=== PATIENT | female | born 1945 | race Caucasian/White ===

== ENCOUNTER 2020-05-07 18:24 | Observation (INO) | payer MEDICARE ==
--- NOTE | 2020-05-07 18:50 | PDOC.FPRHP ---
- History of Present Illness Chief Complaint: Palpatations, chest discomfort History of Present Illness: Patient reports rapid heart rate and feeling very anxious. She was feeling "very rotten" and dizzy. She has been feeling dizzy off and on for a few weeks. Denies falls. The dizziness is present when she stands up, but she sometimes becomes dizzy while sitting. She attributes the dizziness while sitting to anxiety. She took medicine for dizziness but continued to feel dizzy. She reports that she has had anxiety for months. She reports daily anxiety attacks with rapid heart rate and dizziness. She denies diaphoresis. She also took her anxiety medicine without relief. She denies chest pain. She reports that she was told she was hyperventilating in the ED in [place], but did not notice until it was pointed out to her. Denies fever, abdominal pain, N/V. 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 denies: eye pain ENT: denies: nasal congestion, rhinorrhea Respiratory: denies: cough, shortness of breath Cardiovascular: reports: palpitation, edema. denies: chest pain Gastrointestinal: denies: nausea, vomiting, abdominal pain Genitourinary: denies: incontinence, dysuria Skin: denies: rashes, jaundice Musculoskeletal: reports: tenderness, swelling Neurological: denies: syncope, weakness Psychological: reports: anxiety. denies: depression - Vital signs BP: 108/79 HR: 80 RR: 18 Tmax: 99.0 Pox: 95% on RA Wt: [] FMR H&P: Upper Level - Plan Date/Time: 05/07/20 1850 I, [], have evaluated this patient and agree with findings/plan as outlined by editorial intern resident. Pertinent changes/additions are listed here.
[2020-05-07 22:55] VITALS: BMI 34.9
[2020-05-07 23:13] LABS: Troponin I 0.326 ng/mL (< 0.028)
[2020-05-08] MEDS ORDERED: Meclizine HCl 25 MG TAB PO PRN (00:46)
[2020-05-08 01:56] LABS: Troponin I 0.352 ng/mL (< 0.028)
--- NOTE | 2020-05-08 02:38 | HP ---
REASON FOR ADMISSION: Dizziness and anxiety. HISTORY OF PRESENT ILLNESS: This is a 75-year-old female patient, who has been experiencing dizziness for the past couple of months. She described it as spinning-like sensation, worse with movement. She has to hold on to something. Otherwise, she would fall, but the dizziness resolves when she is staying still in bed. She is somewhat of a poor historian, not able to characterize her symptoms in details, but today she was not feeling well. She reported anxiety, dizziness, rapid heart rate, and shortness of breath and for that reason, she went to the ER in [place]. She was found to be tachycardic, so she was given a dose of IV Lopressor. Her blood work did show increased troponin, so she was given a dose of Lovenox. The patient denied having any chest pain. Currently, she is on our telemetry floor, appears to be doing well, very comfortable. Denies being dizzy. Denies anxiety. Denies chest pain. PAST MEDICAL HISTORY: 1. DVT, was on Coumadin. 2. High blood pressure. 3. Obesity. 4. High cholesterol. 5. Anxiety. FAMILY HISTORY: Negative for premature coronary artery disease. ALLERGIES: NO NOTE OF ANY DRUG ALLERGIES. REVIEW OF SYSTEMS: All systems reviewed except for the above mentioned, and found to be negative. PHYSICAL EXAMINATION: GENERAL: Awake, alert, oriented, does not appear in distress. VITAL SIGNS: Her blood pressure is 126/65, heart rate of 73, temperature is 98.1, and saturating 96% on room air. HEENT: Head is nontraumatic, normocephalic. Pupils equal, reactive. Extraocular movements are intact. Nonicteric sclerae. Well-injected conjunctivae. Oral mucosa normal. Nasal mucosa normal. NECK: Supple. No adenopathy. No murmur. Thyroid is not palpable. Trachea is midline. No supraclavicular lymphadenopathy. HEART: S1, S2 regular. No murmur. No gallops. No friction rubs. No displacement of PMI. LUNGS: Clear to auscultation bilaterally. No wheezes, rhonchi, or crackles. ABDOMEN: Bowel sounds are positive. Nontender abdomen. No hepatosplenomegaly. EXTREMITIES: She does have 2+ pitting edema in bilateral lower extremities, which is chronic as per her, but recently not responding to the Lasix that she usually takes. NEURO: Cranial nerves 2-12 within normal limits. Normal motor function. Normal sensory function. Normal reflexes. She does have horizontal nystagmus. LABORATORY DATA: Blood work shows WBC of 9.1, hemoglobin of 14.9, platelets of 216. D-dimer 7.29. Sodium 143, potassium of 4, bicarb of 27, creatinine 0.89. Troponin initially 0.128, repeat 0.234, repeat 0.326. DIAGNOSTIC DATA: EKG shows normal sinus rhythm, low voltage. ASSESSMENT AND PLAN: This is a 75-year-old female patient who presented with feeling anxious, shortness of breath and worsening of her dizziness. She was found to be tachycardic. She was given Lopressor. She felt better, but her blood work did reveal positive D-dimer and positive troponin. She was given a dose of Lovenox, sent to us for further workup. Currently, she appears to be very comfortable. She does report chronic dizziness that has not been resolving, but also some tinnitus. 1. Cardiac. The patient will be on telemetry. We will consult Cardiology. We will do an echocardiogram and we will maintain her on her blood pressure medications and her statins. We will keep her n.p.o. for possible cardiac cath, but also we will keep her on Lovenox twice a day. Her D-dimer were positive, but she is not short of breath, so the suspicion for a PE was low but on the other hand, she does have swelling of her bilateral lower extremities. She has a history of DVT. I would like to do Doppler of lower extremity to further investigate that. I will also start her on aspirin. 2. Neurology: The patient does have chronic dizziness. I would like to do an MRI of the brain to rule out any central etiology, but we will schedule it in 24 hours after she has been seen by Cardiology and a plan was made in regards of her diagnosis of non-ST elevation MO. 3. For her history of anxiety, we will continue with her paroxetine. I did discuss with her the code status and she wishes to be a full code. Job ID: [id number]
[2020-05-08 04:44] LABS: SARS-CoV-2 MS2 Positive; SARS-CoV-2 N Gene Negative; SARS-CoV-2 S Gene Negative; SARS-CoV-2 by NAA Not Detected (NotDetected); SARS-CoV-2 orf1ab Negative
[2020-05-08] MEDS ORDERED: Enoxaparin Sodium 100 MG/ML SYRINGE SC SCH ×3 (06:00→21:00)
[2020-05-08] MEDS ORDERED: Atorvastatin Calcium 20 MG TAB PO SCH (09:00)
[2020-05-08] MEDS ORDERED: PARoxetine 20 MG TAB PO SCH (09:00)
[2020-05-08] MEDS ORDERED: Furosemide 20 MG TAB PO SCH (09:00)
[2020-05-08] MEDS ORDERED: Losartan 25 MG TAB PO SCH (09:00)
[2020-05-08] MEDS ORDERED: Aspirin 81 mg Enteric Coated Tablet PO SCH (09:00)
[2020-05-08] MEDS ORDERED: Calcium Carbonate 500 MG TAB PO SCH (09:00)
[2020-05-08] MEDS ORDERED: Cholecalciferol 1,000 UNITS (25 MCG) TAB PO SCH (09:00)
--- NOTE | 2020-05-08 10:48 | ULT ---
BILATERAL LOWER EXTREMITY VENOUS DUPLEX EXAM: HISTORY: Bilateral leg pain and swelling. FINDINGS: Real-time color Doppler evaluation of the right and left lower extremities was performed from groin t o calf. This includes evaluation of the common femoral, superficial femoral, and profunda femoral, s aphenous, popliteal, and posterior tibial veins. On the right side there is evidence of deep vein thrombus within the left common femoral vein. On th e right side, there is deep vein thrombus in the superficial femoral vein from mid thigh to include t he popliteal vein. IMPRESSION: Bilateral lower extremity deep vein thrombosis. Changes in the left common femoral vein are nonocclu sive thrombus. More extensive thrombus on the right side, particularly at the level of the common fe moral vein. POS: LALY
[2020-05-08 11:00] LABS: CKMB 2.3 ng/mL (0-6.6)
[2020-05-08] MEDS ORDERED: Iopamidol-370 76% 500 ML 1 ML ONE (12:09)
--- NOTE | 2020-05-08 12:28 | CON ---
DATE OF CONSULTATION: REASON FOR CONSULTATION: Elevated troponin. PRIMARY FERRULER: None. HISTORY OF PRESENT ILLNESS: Ms. Villaseñor is a 75-year-old woman, who states over the last month she has had increased heart rate. She has increased heart rate noted 20 to 30 minutes per day, several episodes per day. She also described heaviness in her chest in addition to shortness of breath. She decided to proceed after having associated dizziness. She does have a previous history of DVT. It appears, based on her history, there was no provoking episode causing a DVT 10 years ago. PAST MEDICAL HISTORY: DVT, hypertension, hyperlipidemia, anxiety disorder. FAMILY HISTORY: Negative for CAD. ALLERGIES: NONE. REVIEW OF SYSTEMS: A 10-point review of systems is reviewed and as above, otherwise negative. PHYSICAL EXAMINATION: GENERAL: Patient is a pleasant woman who is in no acute distress. The patient appears their stated age. VITAL SIGNS: Blood pressure 133/81, pulse 70, temperature 98.5. NEUROLOGIC: The patient is alert and oriented x3 with no focal neurologic deficits. HEENT: Sclerae without icterus. Mouth has moist mucous membranes with normal pallor. NECK: No JVD. Carotid upstroke brisk. No bruits bilaterally. LUNGS: Clear to auscultation with unlabored respirations. BACK: No scoliosis or kyphosis. CARDIAC: Regular rate and rhythm with normal S1 and S2. No S3 or S4 noted. No significant rubs, murmurs, thrills, or gallops noted throughout the precordium. PMI is not displaced. There is no parasternal heave. ABDOMEN: Soft, nontender, nondistended. No peritoneal signs present. No hepatosplenomegaly. No abnormal striae. EXTREMITIES: 2+ femoral and 2+ dorsalis pedis pulses. No cyanosis, clubbing, or edema. SKIN: No gross abnormalities. PERTINENT LABORATORY DATA: Peak troponin 0.359, hemoglobin 14.9, creatinine 0.89. TSH 0.6. D-dimer 7.29. COVID negative. IMPRESSION: 1. Palpitations. 2. Chest pressure. 3. Shortness of breath. 4. Dizziness. RECOMMENDATIONS: Ms. Villaseñor's symptoms do not appear to suggest a primary episode of unstable angina. Her symptoms have been noted last month. Her troponin though is elevated. I am concerned about her previous history of DVT that was felt to be unprovoked. This could certainly be the presentation of recurrent DVT based on her previous history, symptoms, in addition to elevated D-dimer. I recommended CTA of the chest to assess for PE. She appears to be hemodynamically stable. If this is negative, I would then proceed with coronary angiography plus PCI. I discussed procedure in full detail with Ms. Villaseñor. The risks included, not limited to the following: , stroke, HI, need for emergency surgery, loss of limb, bleeding, and infection, as well as a reaction to the dye causing kidney failure and needing long-term dialysis. I also discussed the risks of PCI to include all of the above including coronary dissection and perforation in addition to acute stent thrombosis and restenosis. All questions answered. Given the above, patient agreed to proceed with above procedure. I also discussed drug coated versus nondrug coated stent placement. There were no contraindications to proceed if needed. ADDENDUM: Pt with mulitfoci PE on CT scan. ACT recommended. Coronary angio not indicated at this time HR and BP appear stable. Further recommendations per primary team Elevated troponin a direct relationship with PE Job ID: [id number]
--- NOTE | 2020-05-08 12:47 | CT ---
3CT ANGIO OF CHEST PERFORMED WITH INTRAVENOUS CONTRAST ENHANCEMENT WITH 3D RECONSTRUCTIONS: HISTORY: Elevated D-dimer. Bilateral lower extremity DVTs noted on ultrasound done earlier today. FINDINGS: The lungs are clear of any infiltrative process. No pulmonary nodules or pleural effusion. The thoracic aorta is normal in caliber. No mediastinal, hilar, or axillary adenopathy. There is good pulmonary artery opacification and evidence of extensive bilateral pulmonary emboli. A segmental embolus is seen in the left upper lobe pulmonary artery. Also, some thrombus at the level of the origin of the right upper lobe pulmonary arteries and the largest thrombus burden in the righ t lower lobe. This thrombus extends through the level of the main pulmonary artery and causes almost complete occlusive change of the right lower lobe pulmonary artery. Minimal emboli is seen in the l eft lower lobe. Visualized liver parenchyma shows no focal findings. IMPRESSION: Extensive pulmonary embolus. POS: LALY
--- NOTE | 2020-05-08 14:34 | ULT ---
US Carotid Doppler STANDARD History: Dizziness Comparison: None. Findings: Real-time grayscale, color and spectral analysis of the bilateral extracranial carotid and vertebral arteries was performed. No elevated peak systolic velocities within the internal carotid arteries. Antegrade flow both verteb ral arteries. Impression: No hemodynamically significant stenosis.
[2020-05-08 14:44] LABS: CKMB 2.6 ng/mL (0-6.6)
[2020-05-08 15:32] VITALS: BP 144/68; TEMP 98.1
--- NOTE | 2020-05-08 20:47 | PDOC.DS.DS ---
Provider - Provider Date of Admission: 05/07/20 19:33 Date of Discharge: 05/08/20 Admitting Provider: Taisha Haddad MD Consultations: Cardiology (Dr. Haynes) Primary Care Physician: Unknown Course - Hospital Course Hospital Course: Discharge Diagnoses: 1. Acute pulmonary embolism 2. Bilateral DVT 3. Dizziness 4. Elevated troponin likely supply demand ischemia Brief HPI: This is 75-year-old female had been presenting to the hospital for dizziness for the past couple months, described as a spinning sensation worse with movement. When she presented to the emergency room she was tachycardic. Her blood work showed an elevated troponin. She has been to the hospital for further work-up. Hospital course: Acute pulmonary embolism and bilateral DVT: Patient had slightly elevated troponin of 0.23. Due to bilateral leg swelling, dopplers were ordered which showed bilateral DVT, worse on the right side. CTA of her chest showed extensive bilateral PE. The patient did not require any oxygen, and was not tachycardic. She ambulated to the bathroom and reported no dizziness. She received a dose of Lovenox at an outside emergency room. She was given 1 therapeutic dose of 100 mg subcutaneous Lovenox in the hospital and will be discharged with Eliquis 10 mg twice daily for 7 days, then 5 mg twice daily after that. She should follow-up with her PCP in a week. Elevated troponin: Cardiology was consulted and initially recommended a cardiac cath. However, after she was discovered to have pulmonary embolism, they felt this was more demand ischemia and recommended anticoagulation and no further cardiac work-up. Patient denied any chest pain at the time of discharge. Consider repeat troponin in a week. Dizziness: The patient had orthostatics which were negative. Carotid ultrasound showed no significant stenosis. Her dizziness might be related to her pulmonary embolism for which she will be anticoagulated. Pertinent Studies: Carotid doppler 05/08: no significant stenosis CTA chest 05/07: extensive PE. Segmental embolus seen in the left upper lobe pulmonary artery. There is thrombus at the level of the origin of the right upper lobe pulmonary arteries and the largest thrombus burden in the right lower lobe extending through the level of the main pulmonary artery and causing complete occlusive change of the right lower lobe pulmonary artery. Minimal emboli seen in the left lower lobe Bilateral Doppler ultrasound 05/08: Bilateral DVT. Left common femoral vein nonocclusive thrombus. Extensive thrombus on the right side particularly at the level of the common femoral vein ECHO: EF 55-60%, mild MR, mild TR. Resuscitation Status: 05/08/20 00:53 Resuscitation Status Routine Resuscitation Status: FULL: Full Resuscitation - Labs Lab Results: Abnormal Lab Results - Last 48 hrs 05/07/20 19:04: Troponin I 0.234 H 05/07/20 22:18: Troponin I 0.326 H* 05/08/20 01:11: Troponin I 0.352 H* 05/08/20 10:01: Troponin I 0.359 H* 05/08/20 13:18: Troponin I 0.370 H* - Physical Exam Vitals: Vital Signs (12 hours) Temp Pulse Resp BP BP BP Pulse Ox 05/08/20 15:20 98.1 F 82 16 144/68 H 96 05/08/20 11:56 94 19 144/69 H 94 L 05/08/20 09:40 150/70 H 138/69 142/78 H Weight Weight 222 lb 12.8 oz Physical Exam: The patient was seen and examined on the day of discharge. General: Patient is alert awake oriented x3 CVS: Regular rate and rhythm with no murmurs rubs or gallops Lungs: Clear to auscultation bilaterally Abdomen: Positive bowel sounds, soft nontender nondistended Extremities: No edema Problem - Discharge Plan Plan of Treatment: Follow-up with her PCP in a week. Get a repeat troponin level in a week. Consider following up with Dr. Haynes if she has recurrent chest pain or her symptoms worsen on the blood thinner. - Time spent with Patient (mins): 35 Plan - Discharge Medications Prescriptions: Apixaban [Eliquis] 10 mg PO BID #88 tablet Home Medications: Medication Instructions Recorded Confirmed Type Atorvastatin Calcium [Lipitor] 20 mg PO DAILY 05/07/20 05/07/20 History Calcium Carbonate [Calcium] 500 mg PO DAILY 05/07/20 05/07/20 History Cholecalciferol [Vitamin D3] 1,000 unit PO DAILY 05/07/20 05/07/20 History Furosemide [Lasix] 20 mg PO DAILY 05/07/20 05/07/20 History Irbesartan [Avapro] 150 mg PO DAILY 05/07/20 05/07/20 History Meclizine HCl [Antivert] 25 mg PO PRN PRN 05/07/20 05/07/20 History Paroxetine HCl [PARoxetine HCl] 40 mg PO BID 05/07/20 05/07/20 History Apixaban [Eliquis] 10 mg PO BID #88 tablet 05/08/20 Rx Allergies: No Known Allergies Allergy (Verified 05/07/20 20:30) - Discharge Instructions Activity:: Activity as Tolerated Nourishment:: Heart Healthy Diet - Follow up Plan Referrals: Herb Laurent MD [MD Not on Staff] - Noble Haynes MD [Active] - (Please call for a follow up appointment if experience worsening chest pain or side ffects from taking eliquis.) Disposition: HOME Quality - Care Measures CORE MEASURES:: N/A
--- NOTE | 2020-05-22 11:19 | EKG ---
Test Reason : Blood Pressure : / mmHG Vent. Rate : 073 BPM Atrial Rate : 073 BPM P-R Int : 158 ms QRS Dur : 100 ms QT Int : 384 ms P-R-T Axes : 037 017 047 degrees QTc Int : 423 ms Normal sinus rhythm Low voltage QRS Incomplete right bundle branch block Borderline ECG Confirmed by MAYA HUTCHINS, TRINI Powers ([id number]), associate editor DORA FOX ([id number]) on 05/22/2020 11:18:44 AM Referred By: Confirmed By:TRINI TREJO MD
== END 2020-05-08 16:36 | disposition home or self-care (01) ==
LOC: ERS 18:24 → 2NO 19:33
PROVIDERS: ADMIT Internal Medicine; ATTEND Internal Medicine
DX: I26.99 Other pulmonary embolism without acute cor pulmonale (principal); I82.413 Acute embolism and thrombosis of femoral vein, bilateral; R42 Dizziness and giddiness; R77.8 Other specified abnormalities of plasma proteins; R00.0 Tachycardia, unspecified; I10 Essential (primary) hypertension; E78.00 Pure hypercholesterolemia, unspecified; F41.9 Anxiety disorder, unspecified; E66.9 Obesity, unspecified; Z68.34 Body mass index [BMI] 34.0-34.9, adult; Z79.01 Long term (current) use of anticoagulants; Z79.899 Other long term (current) drug therapy; Z20.828 Contact with and (suspected) exposure to other viral communicable diseases
CPT/HCPCS: 71275; 82553; 84484 ×2; 93005; 93306; 93880; 93970; 94760; 96372; 97139; 99285; G0378 ×3; U0003; 36415; 87635; J1650; Q9967

== ENCOUNTER 2022-01-21 18:39 | Inpatient (IN) | payer BC ==
[2022-01-21 19:44] LABS: Bilirubin Negative (Negative); Blood, Urine 2+ (Negative); Clarity Turbid (Clear); Glucose, Urine (Dipstick) Normal (Negative); Ketone, Urine Negative (Negative); Leukocyte Negative Leu/uL (Negative); Mucous/LPF 1+ LPF (<2+); Nitrite Negative (Negative); Protein, Urine (Dipstick) 30 mg/dL (Neg-Trace); Specific Gravity, Urine 1.029 (1.002-1.036); Squamous Epithelial 0-3 HPF (0-3); Urobilinogen Normal mg/dL (Less than 2); pH, Urine 5.5 (5.0-9.0)
[2022-01-21 19:57] LABS: Bacteria/HPF Rare-Few HPF (None Seen)
[2022-01-21 20:27] LABS: #Lymphocytes 1.5 thou/uL (1.20-3.40); #Monocytes 0.3 thou/uL (0.11-0.59); #Neutrophils 4.1 thou/uL (1.40-6.50); %Basophils 0.7 % (0.0-1.0); %Eosinophils 0.1 % (0.0-10.0); %Lymphocytes 24.9 % (21.0-51.0); %Monocytes 5.6 % (0.0-10.0); %Neutrophils 68.7 % (42.0-75.0); Hemoglobin 14.6 g/dL (12.0-16.0); Mean Corpuscular HGB CONC 32.6 g/dL (32.0-36.0); Mean Corpuscular Hemoglobin 28.8 pg (27.0-31.0); Mean Corpuscular Volume 88.2 fL (78.0-98.0); Mean Platelet Volume 7.4 fL (7.4-10.4); Platelet Count 143 thou/uL (130-400); RBC Distribution Width 14.3 % (11.5-14.5); Red Blood Cell (RBC) Count 5.07 mill/uL (4.20-5.40); White Blood Cell (WBC) Count 5.9 thou/uL (4.8-10.8)
[2022-01-21 20:48] LABS: ALT (SGPT) 44 U/L (8-55); AST (SGOT) 120 U/L (5-34); Alkaline Phosphatase 48 U/L (40-110); Anion Gap 16 mmol/L (10-20); BUN (Urea Nitrogen) 10 mg/dL (9.8-20.1); Bilirubin, Total 0.5 mg/dL (0.2-1.2); Calc. Creatinine Clearance 0 mL/min (70-130); Calcium 8.2 mg/dL (7.8-10.44); Carbon Dioxide 20 mmol/L (23-31); Chloride 103 mmol/L (98-107); Estimated GFR 79; Globulin 3.5 g/dL (2.4-3.5); Glucose 93 mg/dL (83-110); Protein, Total 6.5 g/dL (5.8-8.1); Sodium 135 mmol/L (136-145)
[2022-01-21 21:01] LABS: CK (CPK) 4377 U/L (29-168)
[2022-01-21] MEDS ORDERED: Cefepime 2 GM VIAL ONE (22:43)
[2022-01-21] MEDS ORDERED: Ondansetron ODT 4 MG TAB PO PRN (23:30)
[2022-01-21] MEDS ORDERED: Ondansetron PF 4 MG/2 ML Vial IVP PRN (23:30)
[2022-01-21] MEDS ORDERED: Senokot S 8.6-50 MG TAB PO PRN (23:30)
[2022-01-21] MEDS ORDERED: Acetaminophen 325 MG TAB PO PRN (23:30)
[2022-01-21] MEDS ORDERED: Bisacodyl 5 MG TAB PO PRN (23:30)
[2022-01-21] MEDS ORDERED: Acetaminophen 650 MG Suppository PR PRN (23:30)
[2022-01-22 01:00] VITALS: BMI 34.2
[2022-01-22] MEDS: Sodium Chloride 0.9% 1,000 ML IV SCH ×3 (01:07→22:08)
[2022-01-22] MEDS ORDERED: hydrOXYzine 25 MG TAB PO PRN (03:08)
[2022-01-22 05:55] LABS: ALT (SGPT) 40 U/L (8-55); AST (SGOT) 111 U/L (5-34); Albumin 2.6 g/dL (3.4-4.8); Alkaline Phosphatase 37 U/L (40-110); Anion Gap 15 mmol/L (10-20); BUN (Urea Nitrogen) 10 mg/dL (9.8-20.1); Bilirubin, Total 0.4 mg/dL (0.2-1.2); CK (CPK) 3614 U/L (29-168); Calc. Creatinine Clearance 104 mL/min (70-130); Calcium 7.4 mg/dL (7.8-10.44); Carbon Dioxide 20 mmol/L (23-31); Chloride 106 mmol/L (98-107); Estimated GFR 88; Globulin 2.8 g/dL (2.4-3.5); Glucose 87 mg/dL (83-110); Potassium 3.9 mmol/L (3.5-5.1); Protein, Total 5.4 g/dL (5.8-8.1); Sodium 137 mmol/L (136-145)
[2022-01-22] MEDS: Atorvastatin Calcium 40 MG TAB PO SCH (08:59)
[2022-01-22] MEDS: PARoxetine 20 MG TAB PO SCH (08:59)
[2022-01-22] MEDS: Famotidine 20 MG TAB PO SCH ×2 (08:59→20:10)
[2022-01-22] MEDS: Rivaroxaban 10 MG TAB PO SCH (09:00)
[2022-01-22] MEDS ORDERED: Azithromycin 500 MG in Sodium Chloride 0.9% 250 ML 250 ML IVPB SCH (19:15)
[2022-01-23 05:16] LABS: #Eosinphils 0.1 thou/uL (0.0-0.7); #Lymphocytes 1.9 thou/uL (1.20-3.40); #Monocytes 0.3 thou/uL (0.11-0.59); #Neutrophils 2.1 thou/uL (1.40-6.50); %Basophils 0.4 % (0.0-1.0); %Eosinophils 1.5 % (0.0-10.0); %Lymphocytes 43.9 % (21.0-51.0); %Monocytes 6.1 % (0.0-10.0); %Neutrophils 48.1 % (42.0-75.0); Hemoglobin 12.4 g/dL (12.0-16.0); Mean Corpuscular HGB CONC 32.7 g/dL (32.0-36.0); Mean Corpuscular Hemoglobin 28.9 pg (27.0-31.0); Mean Corpuscular Volume 88.5 fL (78.0-98.0); Mean Platelet Volume 7.2 fL (7.4-10.4); Platelet Count 135 thou/uL (130-400); RBC Distribution Width 14.4 % (11.5-14.5); Red Blood Cell (RBC) Count 4.29 mill/uL (4.20-5.40); White Blood Cell (WBC) Count 4.4 thou/uL (4.8-10.8)
[2022-01-23 05:33] LABS: Anion Gap 12 mmol/L (10-20); BUN (Urea Nitrogen) 7 mg/dL (9.8-20.1); CK (CPK) 2358 U/L (29-168); Calc. Creatinine Clearance 109 mL/min (70-130); Calcium 7.4 mg/dL (7.8-10.44); Carbon Dioxide 20 mmol/L (23-31); Chloride 110 mmol/L (98-107); Estimated GFR 90; Glucose 86 mg/dL (83-110); Potassium 3.6 mmol/L (3.5-5.1); Sodium 138 mmol/L (136-145)
[2022-01-23] MEDS: Sodium Chloride 0.9% 1,000 ML IV SCH (07:26)
[2022-01-23] MEDS: Rivaroxaban 10 MG TAB PO SCH (08:59)
[2022-01-23] MEDS: PARoxetine 20 MG TAB PO SCH (08:59)
[2022-01-23] MEDS: Atorvastatin Calcium 40 MG TAB PO SCH (08:59)
[2022-01-23] MEDS: Famotidine 20 MG TAB PO SCH ×2 (08:59→20:30)
[2022-01-23] MEDS ORDERED: PARoxetine 20 MG TAB PO SCH (15:30)
[2022-01-23] MEDS ORDERED: 1/2 NS w/KCL 20 mEq 1,000 ML IV SCH (15:30)
[2022-01-24 05:17] LABS: Anion Gap 12 mmol/L (10-20); BUN (Urea Nitrogen) 5 mg/dL (9.8-20.1); CK (CPK) 1323 U/L (29-168); Calc. Creatinine Clearance 119 mL/min (70-130); Calcium 7.5 mg/dL (7.8-10.44); Carbon Dioxide 21 mmol/L (23-31); Chloride 107 mmol/L (98-107); Estimated GFR 92; Glucose 83 mg/dL (83-110); Potassium 3.7 mmol/L (3.5-5.1); Sodium 136 mmol/L (136-145)
[2022-01-24] MEDS: PARoxetine 20 MG TAB PO SCH (09:03)
[2022-01-24] MEDS: Famotidine 20 MG TAB PO SCH (09:04)
[2022-01-24] MEDS: Atorvastatin Calcium 40 MG TAB PO SCH (09:04)
[2022-01-24] MEDS: Rivaroxaban 10 MG TAB PO SCH (09:04)
[2022-01-24] MEDS ORDERED: Furosemide 20 MG TAB PO PRN (14:03)
[2022-01-24] MEDS ORDERED: Amlodipine 5 MG TAB PO SCH ×2 (14:15→17:45)
[2022-01-24] MEDS ORDERED: Atorvastatin Calcium 40 MG TAB PO SCH (21:00)
[2022-01-25 05:26] LABS: Anion Gap 14 mmol/L (10-20); BUN (Urea Nitrogen) 4 mg/dL (9.8-20.1); CK (CPK) 714 U/L (29-168); CRP (Inflammatory) 2.15 mg/dL (= or < 0.5); Calc. Creatinine Clearance 119 mL/min (70-130); Calcium 7.7 mg/dL (7.8-10.44); Carbon Dioxide 21 mmol/L (23-31); Chloride 105 mmol/L (98-107); Estimated GFR 92; Glucose 78 mg/dL (83-110); Potassium 3.6 mmol/L (3.5-5.1); Sodium 136 mmol/L (136-145)
[2022-01-25] MEDS ORDERED: Amlodipine 5 MG TAB PO SCH ×2 (09:00)
[2022-01-25] MEDS ORDERED: Electrolyte Replacement Protocol 1 EACH FS SCH (09:15)
[2022-01-25] MEDS: PARoxetine 20 MG TAB PO SCH (09:17)
[2022-01-25] MEDS: Amlodipine 5 MG TAB PO SCH (09:17)
[2022-01-25] MEDS: Rivaroxaban 10 MG TAB PO SCH (09:18)
[2022-01-25] MEDS: D5 1/2 NS w/20 mEq KCL 1,000 ML IV SCH (15:45)
[2022-01-25] MEDS ORDERED: Magnesium 2 GM/50 ML(in water) 2 GM in Premix Bag 1 BAG IVPB SCH (16:45)
[2022-01-25] MEDS: NIRMATRELVIR 150 MG/RITONAVIR 100 MG TABLET PO SCH (21:01)
[2022-01-25] MEDS: guaiFENesin ER 600 MG TAB PO SCH (21:02)
[2022-01-26] MEDS: D5 1/2 NS w/20 mEq KCL 1,000 ML IV SCH (04:38)
[2022-01-26 05:08] LABS: #Eosinphils 0.1 thou/uL (0.0-0.7); #Lymphocytes 1.6 thou/uL (1.20-3.40); #Monocytes 0.4 thou/uL (0.11-0.59); #Neutrophils 2.3 thou/uL (1.40-6.50); %Basophils 0.3 % (0.0-1.0); %Eosinophils 1.6 % (0.0-10.0); %Lymphocytes 36.8 % (21.0-51.0); %Monocytes 8.8 % (0.0-10.0); %Neutrophils 52.5 % (42.0-75.0); Hemoglobin 12.1 g/dL (12.0-16.0); Mean Corpuscular HGB CONC 32.8 g/dL (32.0-36.0); Mean Corpuscular Hemoglobin 28.7 pg (27.0-31.0); Mean Corpuscular Volume 87.5 fL (78.0-98.0); Mean Platelet Volume 7.6 fL (7.4-10.4); Platelet Count 155 thou/uL (130-400); RBC Distribution Width 14.3 % (11.5-14.5); Red Blood Cell (RBC) Count 4.22 mill/uL (4.20-5.40); White Blood Cell (WBC) Count 4.3 thou/uL (4.8-10.8)
[2022-01-26 05:38] LABS: Anion Gap 11 mmol/L (10-20); BUN (Urea Nitrogen) 4 mg/dL (9.8-20.1); CK (CPK) 350 U/L (29-168); Calc. Creatinine Clearance 117 mL/min (70-130); Calcium 7.6 mg/dL (7.8-10.44); Carbon Dioxide 23 mmol/L (23-31); Chloride 106 mmol/L (98-107); Estimated GFR 91; Glucose 123 mg/dL (83-110); Potassium 3.3 mmol/L (3.5-5.1); Sodium 137 mmol/L (136-145)
[2022-01-26 05:41] LABS: Phosphorus 1.9 mg/dL (2.3-4.7)
[2022-01-26] MEDS ORDERED: Magnesium 2 GM/50 ML(in water) 2 GM in Premix Bag 1 BAG IVPB SCH (08:00)
[2022-01-26] MEDS ORDERED: PHOS-NAK 1 PKT PACK PO SCH (08:00)
[2022-01-26] MEDS ORDERED: Potassium Chloride 20 MEQ TAB PO SCH (08:00)
[2022-01-26] MEDS: Amlodipine 5 MG TAB PO SCH (09:09)
[2022-01-26] MEDS: guaiFENesin ER 600 MG TAB PO SCH (09:11)
[2022-01-26] MEDS: Rivaroxaban 10 MG TAB PO SCH (09:11)
[2022-01-26] MEDS: PARoxetine 20 MG TAB PO SCH (09:11)
[2022-01-26] MEDS: NIRMATRELVIR 150 MG/RITONAVIR 100 MG TABLET PO SCH (09:14)
[2022-01-26 11:06] VITALS: TEMP 98.6
[2022-01-26 13:17] VITALS: BP 161/86
== END 2022-01-26 11:48 | DRG 564 ==
LOC: ERS 18:39 → 2SW 21:43 → OBSVTOIN 01-22 17:48
PROVIDERS: ADMIT Internal Medicine; ATTEND Internal Medicine
DX: T79.6XXA Traumatic ischemia of muscle, initial encounter (principal); U07.1 COVID-19; E87.1 Hypo-osmolality and hyponatremia; E87.2 Acidosis; I10 Essential (primary) hypertension; F32.A Depression, unspecified; F41.9 Anxiety disorder, unspecified; E78.5 Hyperlipidemia, unspecified; E66.9 Obesity, unspecified; E16.2 Hypoglycemia, unspecified; E87.6 Hypokalemia; E83.39 Other disorders of phosphorus metabolism; W19.XXXA Unspecified fall, initial encounter; Z86.718 Personal history of other venous thrombosis and embolism; Z79.899 Other long term (current) drug therapy; Z79.01 Long term (current) use of anticoagulants; Z68.34 Body mass index [BMI] 34.0-34.9, adult
CPT/HCPCS: 36415; 51701; 70450; 71045; 80048; 80053; 81003; 81015; 82550; 83735; 84100; 84484; 85025; 86140; 87086; 93005; 96361; 96374; G0378; J0456; J0692; J3475; J3480; J7050; U0003; U0005